=== PATIENT | female | born 1945 | race Caucasian/White ===

== ENCOUNTER → 2020-05-29 | Outpatient (REF) | payer MEDICARE, OTHER ==
[2020-05-29 11:52] LABS: HEMATOCRIT 41.8 % (36.0-47.0); HEMOGLOBIN 13.5 g/dl (12.0-15.5); MEAN CORPUSCULAR HEMOGLOBIN 29.9 pg (27.0-33.0); MEAN CORPUSCULAR HGB CONC 32.3 g/dl (32.0-36.5); MEAN CORPUSCULAR VOLUME 92.5 fl (80.0-96.0); PLATELET COUNT, AUTOMATED 156 10^3/uL (150-450); RED BLOOD COUNT 4.52 10^6/uL (4.00-5.40)
[2020-05-29 11:58] LABS: WHITE BLOOD COUNT 13.7 10^3/uL (4.0-10.0)
[2020-05-29 12:21] LABS: ALBUMIN 3.9 GM/DL (3.2-5.2); ALT/SGPT 11 U/L (12-78); BILIRUBIN,TOTAL 0.5 MG/DL (0.2-1.0); BLOOD UREA NITROGEN 24 MG/DL (7-18); CALCIUM LEVEL 9.3 MG/DL (8.8-10.2); CARBON DIOXIDE LEVEL 30 MEQ/L (21-32); CHLORIDE LEVEL 106 MEQ/L (98-107); CHOLESTEROL LEVEL 203 MG/DL (<200); CHOLESTEROL RISK RATIO 3.075 (<5); CREATININE FOR GFR 0.87 MG/DL (0.55-1.30); FREE T4 1.03 NG/DL (0.76-1.46); GLOMERULAR FILTRATION RATE > 60.0 (>39); GLUCOSE, FASTING 101 MG/DL (70-100); HDL CHOLESTEROL 66 MG/DL (>40); LDL CHOLESTEROL 116 MG/DL (<100); NON-HDL-C 137 MG/DL; POTASSIUM SERUM 3.7 MEQ/L (3.5-5.1); SODIUM LEVEL 140 MEQ/L (136-145); TOTAL PROTEIN 6.3 GM/DL (6.4-8.2); TRIGLYCERIDES LEVEL 106 MG/DL (<150)
[2020-05-29 13:50] LABS: LYMPHOCYTES 69 % (16-44); MONOCYTES 3 % (0-5); NEUTROPHILS 28 % (28-66)
[2020-05-29 13:51] LABS: PLATELET ESTIMATE NORMAL (NORMAL)
== END ==
LOC: M SFHCCLAY 09:07
PROVIDERS: ATTEND Nurse Practitioner Family
DX: E78.49 Other hyperlipidemia (principal); I10 Essential (primary) hypertension; I25.10 Atherosclerotic heart disease of native coronary artery without angina pectoris; F41.8 Other specified anxiety disorders; Z13.1 Encounter for screening for diabetes mellitus; Z79.899 Other long term (current) drug therapy
CPT/HCPCS: 80053; 80061; 83036; 84439; 84443; 85025; G0463

== ENCOUNTER → 2020-08-21 | Outpatient (CLI) | payer MEDICARE, OTHER ==
--- NOTE | 2020-08-21 13:13 | REP ---
INDICATION: R16.0 HEPATOMEGALY. COMPARISON: None FINDINGS: Multiple ultrasonographic images of the liver show the hepatic parenchymal echo texture to appear unremarkable. There are no focal masses. There is no ultrasonographic evidence of gross hepatomegaly. There is no intrahepatic ductal dilatation. The common bile duct is somewhat dilated measuring 7.3 mm. Multiple ultrasonographic images of the gallbladder show no focal or diffuse gallbladder wall thickening. There are no echogenic foci within the gallbladder lumen, which casts acoustic shadows. There is no pericholecystic edema. Images of the pancreatic region show pancreatic ductal dilatation measuring 5 mm. Diffuse increased echoes are also seen throughout the pancreas without evidence of a discrete mass. The imaged portion of the right kidney is unremarkable. IMPRESSION: 1. Dilatation of the CBD. 2. Pancreatic duct dilatation. 3. Consider follow-up with pancreatic MRI and MRCP. Accredited by the [employer] in General Ultrasound. <Electronically signed by Jama Mckinnon > 08/21/20 [id number]
== END ==
LOC: M WHC 09:13
PROVIDERS: ATTEND Nurse Practitioner Family
DX: R16.0 Hepatomegaly, not elsewhere classified (principal)

== ENCOUNTER → 2020-10-06 | Outpatient (CLI) | payer MEDICARE, OTHER ==
--- NOTE | 2020-10-06 10:16 | REP ---
INDICATION: MRCP COMMON BILE DUCT DIALATION. COMPARISON: Comparison right upper quadrant sonography 21 August 2020 showed dilation of the common bile duct and pancreatic duct, 7.3 and 5 mm respectively.. TECHNIQUE: 2D MRCP acquisition is acquired and maximum intensity projection images are generated and viewed in rotational format. Coronal and axial T2 weighted scans are included. FINDINGS: There are 3 cyst tiny filling defects near the neck of the gallbladder is consistent with small gallbladder calculi. Gallbladder wall is not thickened. No pericholecystic fluid is seen. No focal liver lesion is seen. The spleen is unremarkable No renal abnormality is seen. MRCP images confirm the presence of mild dilation of the common bile duct, 7 mm in greatest diameter. There is moderate distension of the pancreatic duct, 6 mm in diameter. There is no evidence of pancreatic mass. No filling defect is seen in the common bile duct or main pancreatic duct. There is no evidence of intrahepatic ductal dilation. There is a duodenal diverticulum are which appears to arise from the horizontal, 3rd portion of the duodenum below the pancreatic head. No other finding. IMPRESSION: Mild common bile duct dilation is confirmed. Moderate dilation of the main pancreatic duct is seen. No stricture or mass is observed. There is no MRCP evidence of choledocholithiasis. There are small stones believed to be in the lumen of the gallbladder. <Electronically signed by Rad Katz > 10/06/20 [id number]
== END ==
LOC: M RAD 07:34
PROVIDERS: ATTEND Nurse Practitioner Family
DX: K83.8 Other specified diseases of biliary tract (principal)

== ENCOUNTER → 2020-11-14 | Outpatient (CLI) | payer MEDICARE, OTHER ==
[~2020-11-14] MED LIST: ALPR0.5T3; COMB0.2S; EZET10TA21; HYDR10TAB; LOSA100T5; NITR100C2; PREDOPD; ROSU10TA6; SERTRALINE
== END ==
LOC: M LABSMTC 11:51
PROVIDERS: ATTEND Anesthesiology
DX: Z01.818 Encounter for other preprocedural examination (principal); Z20.828 Contact with and (suspected) exposure to other viral communicable diseases

== ENCOUNTER → 2020-12-30 | Outpatient (REF) | payer MEDICARE, OTHER ==
[2020-12-30 16:32] LABS: HEMATOCRIT 41.6 % (36.0-47.0); HEMOGLOBIN 13.4 g/dl (12.0-15.5); MEAN CORPUSCULAR HEMOGLOBIN 29.6 pg (27.0-33.0); MEAN CORPUSCULAR HGB CONC 32.2 g/dl (32.0-36.5); PLATELET COUNT, AUTOMATED 163 10^3/uL (150-450); RED BLOOD COUNT 4.52 10^6/uL (4.00-5.40)
[2020-12-30 16:39] LABS: WHITE BLOOD COUNT 14.4 10^3/uL (4.0-10.0)
[2020-12-30 16:58] LABS: RHEUMATOID FACTOR QUANT < 10.0 IU/ML (<15.0); TOTAL PROTEIN 6.2 GM/DL (6.4-8.2)
[2020-12-30 17:11] LABS: ATYPICAL LYMPH 4 % (0-5); BASOPHILS 3 % (0-1); EOSINOPHILS 1 % (0-3); LYMPHOCYTES 59 % (16-44); MONOCYTES 1 % (0-5); NEUTROPHILS 31 % (28-66)
[2020-12-30 17:12] LABS: PLATELET ESTIMATE NORMAL (NORMAL)
[2020-12-30 17:27] LABS: ERYTHROCYTE SEDIMENTATION RATE 9 mm/hr (0-30)
[2020-12-30 17:28] LABS: VITAMIN B12 LEVEL 291 PG/ML
[2020-12-30 17:29] LABS: FOLATE 16.7 NG/ML
[2021-01-01 11:49] LABS: ALBUMIN 4.11 GM/DL (3.29-5.55); ALBUMIN % 66.3 % (55.8-66.1); ALPHA-1-GLOBULIN % 4.4 % (2.9-4.9); ALPHA-1-GLOBULINS 0.27 GM/DL (0.17-0.41); ALPHA-2-GLOBULINS 0.71 GM/DL (0.42-0.99); ALPHA-2-GLOBULINS % 11.4 % (7.1-11.8); BETA-1-GLOBULINS 0.37 GM/DL (0.28-0.60); BETA-2-GLOBULINS 0.24 GM/DL (0.19-0.55); BETA-2-GLOBULINS % 3.9 % (3.2-6.5)
== END ==
LOC: M LABDRAWC 15:47
PROVIDERS: ATTEND Psychiatry & Neurology Neurology
DX: R41.89 Other symptoms and signs involving cognitive functions and awareness (principal); I10 Essential (primary) hypertension; E78.49 Other hyperlipidemia; Z11.59 Encounter for screening for other viral diseases; I25.10 Atherosclerotic heart disease of native coronary artery without angina pectoris; F41.8 Other specified anxiety disorders; Z13.1 Encounter for screening for diabetes mellitus; Z79.899 Other long term (current) drug therapy

== ENCOUNTER → 2020-12-30 | Outpatient (REF) | payer MEDICARE, OTHER ==
[2020-12-30 17:02] LABS: ALBUMIN 3.7 GM/DL (3.2-5.2); ALT/SGPT 12 U/L (12-78); BILIRUBIN,TOTAL 0.5 MG/DL (0.2-1.0); BLOOD UREA NITROGEN 19 MG/DL (7-18); CALCIUM LEVEL 9.1 MG/DL (8.8-10.2); CARBON DIOXIDE LEVEL 30 MEQ/L (21-32); CHLORIDE LEVEL 107 MEQ/L (98-107); CHOLESTEROL LEVEL 172 MG/DL (<200); CHOLESTEROL RISK RATIO 2.687 (<5); FREE T4 0.92 NG/DL (0.76-1.46); GLOMERULAR FILTRATION RATE > 60.0 (>39); GLUCOSE, FASTING 100 MG/DL (70-100); HDL CHOLESTEROL 64 MG/DL (>40); LDL CHOLESTEROL 85 MG/DL (<100); NON-HDL-C 108 MG/DL; SODIUM LEVEL 143 MEQ/L (136-145); TOTAL PROTEIN 6.2 GM/DL (6.4-8.2); TRIGLYCERIDES LEVEL 117 MG/DL (<150)
[2020-12-30 17:12] LABS: HEMOGLOBIN A1c 5.6 %
[2020-12-30 18:07] LABS: HEPATITIS C VIRUS ABY INDEX < 0.0 INDEX (<0.8)
== END ==
LOC: M SFHCCLAY 09:52
PROVIDERS: ATTEND Nurse Practitioner Family
DX: I10 Essential (primary) hypertension (principal); E78.49 Other hyperlipidemia; Z11.59 Encounter for screening for other viral diseases; I25.10 Atherosclerotic heart disease of native coronary artery without angina pectoris; F41.8 Other specified anxiety disorders; Z13.1 Encounter for screening for diabetes mellitus; Z79.899 Other long term (current) drug therapy

== ENCOUNTER → 2021-02-04 | Outpatient (CLI) | payer MEDICARE, OTHER ==
[~2021-02-04] MED LIST changes: +ADVI200T PO; +GLUC1TAB58 PO; -HYDR10TAB; +HYDR10TAB PO; -LOSA100T5; +LOSA100T5 PO; -ROSU10TA6; +ROSU10TA6 PO; +ZOLO100T PO; +[UNRECOGNIZED DRUG - OTHER] PO
--- NOTE | 2021-02-04 09:47 | REP ---
INDICATION: M25.562, PAIN IN LEFT KNEE COMPARISON: None. TECHNIQUE: AP, lateral, bilateral oblique and sunrise views. FINDINGS: The osseous structures and joint spaces are intact and normal/age-appropriate. There is no evidence for acute fracture or dislocation. Minimal increased sclerosis along the tibial plateau and posterior patellar margin with subtle medial tibiofemoral joint space narrowing. No joint effusion is appreciated. Surrounding soft tissues are unremarkable. No subcutaneous emphysema or radiodense foreign body. IMPRESSION: Very minimal age-related changes. <Electronically signed by Raymond Pinto > 02/04/21 [id number]
== END ==
LOC: M CLY 09:09
PROVIDERS: ATTEND Nurse Practitioner Family
DX: M25.562 Pain in left knee (principal)
CPT/HCPCS: 73564; G0463

== ENCOUNTER → 2021-02-17 | Outpatient (CLI) | payer MEDICARE, OTHER ==
[2021-02-17 18:18] LABS: BASO # 0.1 10^3/uL (0.0-0.2); BASO % 0.5 % (0.0-1.0); EOS # 0.1 10^3/uL (0.0-0.5); EOS % 0.7 % (0.0-3.0); HEMATOCRIT 41.7 % (36.0-47.0); HEMOGLOBIN 13.5 g/dl (12.0-15.5); LYMPH # 9.9 10^3/uL (1.5-5.0); LYMPH % 65.6 % (24.0-44.0); MEAN CORPUSCULAR HGB CONC 32.4 g/dl (32.0-36.5); MEAN CORPUSCULAR VOLUME 92.7 fl (80.0-96.0); MONO # 0.6 10^3/uL (0.0-0.8); MONO % 4.2 % (2.0-8.0); NEUTROPHILS # 4.3 10^3/uL (1.5-8.5); NEUTROPHILS % 28.7 % (36.0-66.0); PLATELET COUNT, AUTOMATED 151 10^3/uL (150-450)
[2021-02-17 18:31] LABS: WHITE BLOOD COUNT 15.1 10^3/uL (4.0-10.0)
[2021-02-18 10:32] LABS: ALT/SGPT 16 U/L (12-78); BILIRUBIN,TOTAL 0.4 MG/DL (0.2-1.0); BLOOD UREA NITROGEN 23 MG/DL (7-18); CARBON DIOXIDE LEVEL 29 MEQ/L (21-32); CHLORIDE LEVEL 108 MEQ/L (98-107); CREATININE FOR GFR 0.85 MG/DL (0.55-1.30); GLOMERULAR FILTRATION RATE > 60.0 (>39); GLUCOSE, FASTING 92 MG/DL (70-100); LDH LACTATE DEHYDROGENASE 165 U/L (84-246); POTASSIUM SERUM 4.1 MEQ/L (3.5-5.1); SODIUM LEVEL 142 MEQ/L (136-145); TOTAL PROTEIN 6.3 GM/DL (6.4-8.2)
== END ==
LOC: M LAB 17:02
PROVIDERS: ATTEND Internal Medicine Medical Oncology
DX: C91.90 Lymphoid leukemia, unspecified not having achieved remission (principal)

== ENCOUNTER → 2021-04-03 | Outpatient (REF) | payer MEDICARE, OTHER | LOC: M LABDRAWC 11:19 | PROVIDERS: ATTEND Psychiatry & Neurology Neurology | DX: R77.9 Abnormality of plasma protein, unspecified (principal) ==

== ENCOUNTER → 2021-06-24 | Outpatient (REF) | payer MEDICARE, OTHER ==
[~2021-06-24] MED LIST changes: +[UNRECOGNIZED DRUG - OTHER] PO
== END ==
LOC: M SFHCCLAY 10:01
PROVIDERS: ATTEND Physician Assistant
DX: R05.9 Cough, unspecified (principal)
CPT/HCPCS: 87426; G0463; U0003

== ENCOUNTER → 2021-09-24 | Outpatient (REF) | payer MEDICARE, OTHER ==
[2021-09-24 16:25] LABS: TOTAL PROTEIN 6.6 GM/DL (6.4-8.2)
[2021-09-24 17:08] LABS: VITAMIN B12 LEVEL 538 PG/ML
[2021-09-24 17:17] LABS: FOLATE 18.4 NG/ML
[2021-09-28 10:47] LABS: ALBUMIN 4.34 GM/DL (3.29-5.55); ALBUMIN % 65.7 % (55.8-66.1); ALPHA-1-GLOBULIN % 4.4 % (2.9-4.9); ALPHA-1-GLOBULINS 0.29 GM/DL (0.17-0.41); ALPHA-2-GLOBULINS % 12.1 % (7.1-11.8); BETA-1-GLOBULINS 0.42 GM/DL (0.28-0.60); BETA-1-GLOBULINS % 6.4 % (4.7-7.2); BETA-2-GLOBULINS 0.26 GM/DL (0.19-0.55)
[2021-09-28 10:48] LABS: BETA-2-GLOBULINS % 3.9 % (3.2-6.5); GAMMA GLOBULIN % 7.5 % (11.1-18.8)
[2021-10-12 18:07] LABS: CERULOPLASMIN 30.3 mg/dL (19.0-39.0); COPPER PLASMA 121 ug/dL (80-158); LEAD BLOOD ADULT <1 ug/dL (0-4); MERCURY LEVEL 1.1 ug/L (0.0-14.9); VITAMIN B1 LEVEL WHOLE BLOOD 148.5 nmol/L (66.5-200.0); VITAMIN B6,PYRIDOXAL PHOSPHATE 7.6 ug/L (2.0-32.8)
== END ==
LOC: M LABDRAWC 15:36
PROVIDERS: ATTEND Psychiatry & Neurology Neurology
DX: G62.9 Polyneuropathy, unspecified (principal)

== ENCOUNTER → 2021-11-23 | Outpatient (REF) | payer MEDICARE, OTHER ==
[2021-11-23 16:17] LABS: BASO # 0.1 10^3/uL (0.0-0.2); BASO % 0.5 % (0.0-1.0); EOS # 0.1 10^3/uL (0.0-0.5); EOS % 0.8 % (0.0-3.0); HEMOGLOBIN 14.2 g/dl (12.0-15.5); LYMPH # 9.5 10^3/uL (1.5-5.0); MEAN CORPUSCULAR HEMOGLOBIN 29.5 pg (27.0-33.0); MEAN CORPUSCULAR HGB CONC 32.3 g/dl (32.0-36.5); MEAN CORPUSCULAR VOLUME 91.5 fl (80.0-96.0); MONO # 0.7 10^3/uL (0.0-0.8); MONO % 4.7 % (2.0-8.0); NEUTROPHILS # 5.1 10^3/uL (1.5-8.5); NEUTROPHILS % 32.7 % (36.0-66.0); PLATELET COUNT, AUTOMATED 186 10^3/uL (150-450); RED BLOOD COUNT 4.81 10^6/uL (4.00-5.40); WHITE BLOOD COUNT 15.6 10^3/uL (4.0-10.0)
[2021-11-23 16:29] LABS: ALBUMIN 4.3 GM/DL (3.2-5.2); ALT/SGPT 10 U/L (12-78); BILIRUBIN,TOTAL 0.5 MG/DL (0.2-1.0); BLOOD UREA NITROGEN 22 MG/DL (7-18); CALCIUM LEVEL 9.7 MG/DL (8.8-10.2); CARBON DIOXIDE LEVEL 28 MEQ/L (21-32); CHLORIDE LEVEL 106 MEQ/L (98-107); CHOLESTEROL LEVEL 237 MG/DL (<200); CHOLESTEROL RISK RATIO 3.885 (<5); CREATININE FOR GFR 0.79 MG/DL (0.55-1.30); FREE T4 2.96 NG/DL (0.76-1.46); GLOMERULAR FILTRATION RATE > 60.0 (>39); GLUCOSE, FASTING 97 MG/DL (70-100); HDL CHOLESTEROL 61 MG/DL (>40); LDL CHOLESTEROL 141 MG/DL (<100); MAGNESIUM LEVEL 2.1 MG/DL (1.8-2.4); NON-HDL-C 176 MG/DL; POTASSIUM SERUM 4.1 MEQ/L (3.5-5.1); SODIUM LEVEL 142 MEQ/L (136-145); THYROID STIMULATING HORMONE 0.935 uIU/ML (0.358-3.740); TOTAL PROTEIN 6.7 GM/DL (6.4-8.2); TRIGLYCERIDES LEVEL 177 MG/DL (<150)
[2021-11-23 16:59] LABS: HEMOGLOBIN A1c 5.7 %
[2021-11-26 13:24] LABS: FREE T3 2.9 PG/ML (2.2-4.0); THYROGLOBULIN ANTIBODY < 15.0 U/ML (<60.0); THYROID PEROXIDASE ANTIBODY < 28.0 U/ML (<60.0); TOTAL T3 102.6 NG/DL (60.0-181.0)
== END ==
LOC: M SFHCCLAY 11:42
PROVIDERS: ATTEND Nurse Practitioner Family
DX: I10 Essential (primary) hypertension (principal); E78.49 Other hyperlipidemia; K52.9 Noninfective gastroenteritis and colitis, unspecified; I25.10 Atherosclerotic heart disease of native coronary artery without angina pectoris; F41.8 Other specified anxiety disorders; C91.10 Chronic lymphocytic leukemia of B-cell type not having achieved remission; R73.03 Prediabetes; R41.3 Other amnesia; R29.818 Other symptoms and signs involving the nervous system; Z79.899 Other long term (current) drug therapy

== ENCOUNTER → 2021-12-07 | Outpatient (CLI) | payer MEDICARE, OTHER | LOC: M WHC 09:58 | PROVIDERS: ATTEND Nurse Practitioner Family | DX: E04.1 Nontoxic single thyroid nodule (principal); R79.89 Other specified abnormal findings of blood chemistry ==

== ENCOUNTER → 2021-12-14 | Outpatient (CLI) | payer MEDICARE, OTHER | LOC: M RAD 12:17 | PROVIDERS: ATTEND Nurse Practitioner Family | DX: M79.89 Other specified soft tissue disorders (principal) ==

== ENCOUNTER → 2022-01-05 | Outpatient (REF) | payer MEDICARE, OTHER ==
[2022-01-05 17:40] LABS: FREE T4 2.8 NG/DL (0.76-1.46); THYROID STIMULATING HORMONE 1.16 uIU/ML (0.358-3.740)
== END ==
LOC: M SFHCCLAY 11:30
PROVIDERS: ATTEND Nurse Practitioner Family
DX: R79.89 Other specified abnormal findings of blood chemistry (principal); N39.0 Urinary tract infection, site not specified; Z79.899 Other long term (current) drug therapy

== ENCOUNTER → 2022-02-08 | Outpatient (REF) | payer MEDICARE, OTHER ==
[2022-02-08 17:41] LABS: APPEARANCE, URINE CLEAR (CLEAR); BACTERIA, URINE AUTO NEGATIVE (NEGATIVE); BILIRUBIN, URINE AUTO NEGATIVE (NEGATIVE); BLOOD, URINE BLOOD NEGATIVE (NEGATIVE); COLOR, URINE YELLOW (YELLOW); GLUCOSE, URINE (UA) AUTO NEGATIVE (NEGATIVE); KETONE, URINE AUTO NEGATIVE (NEGATIVE); LEUKOCYTE ESTERASE, URINE AUTO 2+ (NEGATIVE); NITRITE, URINE AUTO NEGATIVE (NEGATIVE); PROTEIN, URINE AUTO NEGATIVE (NEGATIVE); RBC, URINE AUTO 2 /HPF (0-3); SPECIFIC GRAVITY URINE AUTO 1.014 (1.002-1.035); SQUAMOUS EPITHELIAL CELL UR AU 0 /HPF (0-6); TRANSITIONAL EPITHELIAL AUTO <1 /HPF; UROBILINOGEN, URINE AUTO 0.2 mg/dL (0.0-2.0); WBC, URINE AUTO 3 /HPF (0-3)
== END ==
LOC: M SMT 16:43
PROVIDERS: ATTEND Urology
DX: N39.0 Urinary tract infection, site not specified (principal)

== ENCOUNTER → 2022-02-23 | Outpatient (REF) | payer MEDICARE, OTHER | LOC: M LABDRAWC 11:00 | PROVIDERS: ATTEND Internal Medicine Endocrinology, Diabetes & Metabolism | DX: R94.6 Abnormal results of thyroid function studies (principal) ==

== ENCOUNTER → 2022-07-01 | Outpatient (REF) | payer MEDICARE, OTHER ==
[2022-07-01 19:27] LABS: ALBUMIN 4.2 G/DL (3.2-5.2); BLOOD UREA NITROGEN 25 MG/DL (9-23); CALCIUM LEVEL 9.3 MG/DL (8.3-10.6); CARBON DIOXIDE LEVEL 28 MMOL/L (20-31); CHLORIDE LEVEL 105 MMOL/L (98-107); CREATININE FOR GFR 0.89 MG/DL (0.55-1.30); GLOMERULAR FILTRATION RATE > 60.0 (>39); GLUCOSE, FASTING 118 MG/DL (74-106); PHOSPHORUS LEVEL 4.2 MG/DL (2.4-5.1); POTASSIUM SERUM 4.6 MMOL/L (3.5-5.1); SODIUM LEVEL 142 MMOL/L (136-145)
== END ==
LOC: M LABDRAWC 17:06
PROVIDERS: ATTEND Internal Medicine Cardiovascular Disease
DX: I10 Essential (primary) hypertension (principal); R60.0 Localized edema; R06.02 Shortness of breath

== ENCOUNTER → 2022-07-28 | Outpatient (REF) | payer MEDICARE, OTHER ==
[2022-07-28 21:38] LABS: APPEARANCE, URINE MANUAL CLEAR (CLEAR); COLOR, URINE MANUAL YELLOW (YELLOW)
[2022-07-28 21:39] LABS: BILIRUBIN, URINE MANUAL NEGATIVE (NEGATIVE); BLOOD URINE MANUAL NEGATIVE (NEGATIVE); GLUCOSE, URINE (UA) MANUAL NEGATIVE (NEGATIVE); KETONE, URINE MANUAL NEGATIVE (NEGATIVE); LEUKOCYTE ESTERASE, URINE MAN POSITIVE (NEGATIVE); NITRITE, URINE MANUAL NEGATIVE (NEGATIVE); PROTEIN, URINE MANUAL NEGATIVE (NEGATIVE); SPECIFIC GRAVITY,URINE MANUAL 1.005 (1.002-1.035); UROBILINOGEN, URINE MANUAL NORMAL (NORMAL)
[2022-07-28 22:05] LABS: RBC, URINE 0-1 /hpf (0-3); SQUAMOUS EPITHELIAL CELL URINE NONE SEEN /hpf (SMALL AMT)
[2022-07-28 22:06] LABS: BACTERIA, URINE NONE SEEN; HYALINE CAST, URINE NONE SEEN /lpf (0-1)
== END ==
LOC: M SMT 17:24
PROVIDERS: ATTEND Physician Assistant
DX: N39.0 Urinary tract infection, site not specified (principal)

== ENCOUNTER → 2022-08-24 | Outpatient (CLI) | payer MEDICARE, OTHER ==
[~2022-08-24] MED LIST changes: +BUPR-69 PO; +BUSP5TA; +CHLO125TA; +LORA-674; +LOSA100T45; +SPIR-10
== END ==
LOC: M CLY 11:37
PROVIDERS: ATTEND Nurse Practitioner Family
DX: R05.8 Other specified cough (principal); I51.7 Cardiomegaly; I70.0 Atherosclerosis of aorta; M48.14 Ankylosing hyperostosis [Forestier], thoracic region

== ENCOUNTER → 2022-08-27 | Outpatient (REF) | payer MEDICARE, OTHER ==
[~2022-08-27] MED LIST changes: -BUPR-69 PO; -BUSP5TA; -CHLO125TA; -LORA-674; -LOSA100T45; -SPIR-10
== END ==
LOC: M SFHCCLAY 11:20
PROVIDERS: ATTEND Nurse Practitioner Family
DX: R05.8 Other specified cough (principal)

== ENCOUNTER 2022-09-15 13:31 | Emergency (ER) | payer MEDICARE, OTHER ==
[~2022-09-15] VITALS: Ht 160 cm; Wt 81.5 kg
[2022-09-15] MEDS ORDERED: LOSA100T45 (13:45)
[2022-09-15] MEDS ORDERED: BUPR-69 PO (13:45)
[2022-09-15] MEDS ORDERED: CHLO125TA (13:45)
[2022-09-15] MEDS ORDERED: BUSP5TA (13:45)
[2022-09-15] MEDS ORDERED: SPIR-10 (13:45)
[2022-09-15 15:49] VITALS: BP 129/61
[2022-09-15 16:52] LABS: BASO # 0.1 10^3/uL (0.0-0.2); BASO % 0.5 % (0.0-1.0); EOS # 0.6 10^3/uL (0.0-0.5); EOS % 2.7 % (0.0-3.0); HEMATOCRIT 42.2 % (36.0-47.0); HEMOGLOBIN 13.6 g/dl (12.0-15.5); LYMPH % 60.9 % (24.0-44.0); MEAN CORPUSCULAR HEMOGLOBIN 28.8 pg (27.0-33.0); MEAN CORPUSCULAR HGB CONC 32.2 g/dl (32.0-36.5); MEAN CORPUSCULAR VOLUME 89.4 fl (80.0-96.0); MONO # 0.9 10^3/uL (0.0-0.8); MONO % 4.2 % (2.0-8.0); NEUTROPHILS # 6.7 10^3/uL (1.5-8.5); NEUTROPHILS % 31.3 % (36.0-66.0); PLATELET COUNT, AUTOMATED 230 10^3/uL (150-450); RED BLOOD COUNT 4.72 10^6/uL (4.00-5.40); WHITE BLOOD COUNT 21.4 10^3/uL (4.0-10.0)
[2022-09-15 17:05] LABS: ERYTHROCYTE SEDIMENTATION RATE 53 mm/hr (0-30)
[2022-09-15 17:15] LABS: ALBUMIN 3.9 G/DL (3.2-5.2); ALKALINE PHOSPHATASE 87 U/L (46-116); BLOOD UREA NITROGEN 26 MG/DL (9-23); CALCIUM LEVEL 9.7 MG/DL (8.3-10.6); CARBON DIOXIDE LEVEL 26 MMOL/L (20-31); CHLORIDE LEVEL 101 MMOL/L (98-107); GLUCOSE, FASTING 103 MG/DL (74-106); POTASSIUM SERUM 4.2 MMOL/L (3.5-5.1); SODIUM LEVEL 137 MMOL/L (136-145)
[2022-09-15 17:16] LABS: LDH LACTATE DEHYDROGENASE 167 U/L (120-246)
[2022-09-15] MEDS ORDERED: ISOVUE-370 76% 100ML VIAL As Ordered ONE (18:15)
[2022-09-15 18:23] LABS: ALT/SGPT < 9 U/L (7.0-40); AST/SGOT 21 U/L (<34); BILIRUBIN,DIRECT 0.1 MG/DL (<0.4); BILIRUBIN,TOTAL 0.5 MG/DL (0.3-1.2); CREATININE FOR GFR 1.14 MG/DL (0.55-1.30); GLOMERULAR FILTRATION RATE 48.9 (>39)
== END 2022-09-15 20:10 | disposition home or self-care (01) ==
LOC: M ED 13:31
DX: R05.9 Cough, unspecified (principal); D72.829 Elevated white blood cell count, unspecified; I10 Essential (primary) hypertension; G47.33 Obstructive sleep apnea (adult) (pediatric); Z88.5 Allergy status to narcotic agent; Z91.040 Latex allergy status; Z79.899 Other long term (current) drug therapy
CPT/HCPCS: 70491; 71046; 71275; 80047; 80048; 80076; 83605; 83615; 85025; 85652; 86140; 87040; 87486; 87581; 87633; 87798; 99284; Q9967

== ENCOUNTER → 2022-12-23 | Outpatient (REF) | payer MEDICARE, OTHER ==
[~2022-12-23] MED LIST changes: +BUPR-69 PO; +BUSP5TA; +CHLO125TA; +LORA-674; +LOSA100T46; +SPIR-10
== END ==
LOC: M SFHCDERM 17:24
PROVIDERS: ATTEND Nurse Practitioner Family
DX: D04.39 Carcinoma in situ of skin of other parts of face (principal); L57.8 Other skin changes due to chronic exposure to nonionizing radiation

== ENCOUNTER → 2023-03-29 | Outpatient (REF) | payer MEDICARE ==
[2023-03-29 19:19] LABS: BASO # 0.1 10^3/uL (0.0-0.2); BASO % 0.4 % (0.0-1.0); EOS # 0.2 10^3/uL (0.0-0.5); HEMATOCRIT 43.4 % (36.0-47.0); HEMOGLOBIN 13.6 g/dl (12.0-15.5); LYMPH # 9.2 10^3/uL (1.5-5.0); LYMPH % 61.7 % (24.0-44.0); MEAN CORPUSCULAR HEMOGLOBIN 28.8 pg (27.0-33.0); MEAN CORPUSCULAR HGB CONC 31.3 g/dl (32.0-36.5); MEAN CORPUSCULAR VOLUME 91.8 fl (80.0-96.0); MONO # 0.5 10^3/uL (0.0-0.8); MONO % 3.6 % (2.0-8.0); NEUTROPHILS # 4.9 10^3/uL (1.5-8.5); PLATELET COUNT, AUTOMATED 174 10^3/uL (150-450); RED BLOOD COUNT 4.73 10^6/uL (4.00-5.40); WHITE BLOOD COUNT 14.9 10^3/uL (4.0-10.0)
[2023-03-29 19:45] LABS: IMMUNOGLOBULIN A 86.2 MG/DL (40-350); IMMUNOGLOBULIN M 53.7 MG/DL (50-300)
[2023-03-29 20:13] LABS: IMMUNOGLOBULIN E 2.6 IU/ML (0-378)
== END ==
LOC: M LABDRAWC 16:32
PROVIDERS: ATTEND Internal Medicine Critical Care Medicine
DX: D80.3 Selective deficiency of immunoglobulin G [IgG] subclasses (principal); J45.30 Mild persistent asthma, uncomplicated

== ENCOUNTER → 2023-03-29 | Outpatient (REF) | payer MEDICARE ==
[2023-03-29 19:32] LABS: HEMOGLOBIN A1c 5.8 % (4.0-6.0)
[2023-03-29 19:48] LABS: ALBUMIN 4.2 G/DL (3.2-5.2); ALKALINE PHOSPHATASE 70 U/L (46-116); ALT/SGPT < 9 U/L (7.0-40); AST/SGOT 12 U/L (<34); BILIRUBIN,TOTAL 0.5 MG/DL (0.3-1.2); BLOOD UREA NITROGEN 30 MG/DL (9-23); CALCIUM LEVEL 9.9 MG/DL (8.3-10.6); CARBON DIOXIDE LEVEL 26 MMOL/L (20-31); CHLORIDE LEVEL 107 MMOL/L (98-107); CHOLESTEROL LEVEL 222 MG/DL (<200); CHOLESTEROL RISK RATIO 3.32 (<5); CREATININE FOR GFR 0.98 MG/DL (0.55-1.30); GLOMERULAR FILTRATION RATE 58.1 (>32); GLUCOSE, FASTING 104 MG/DL (74-106); HDL CHOLESTEROL 66.8 MG/DL (>40); LDL CHOLESTEROL 117.8 MG/DL (<100); MAGNESIUM LEVEL 1.8 MG/DL (1.8-2.4); NON-HDL-C 155.2 MG/DL; POTASSIUM SERUM 5.1 MMOL/L (3.5-5.1); SODIUM LEVEL 141 MMOL/L (136-145); TOTAL PROTEIN 6.6 G/DL (5.7-8.2); TRIGLYCERIDES LEVEL 187 MG/DL (<150)
[2023-03-29 19:49] LABS: FREE T4 1.05 NG/DL (0.89-1.76)
[2023-03-29 19:50] LABS: TOTAL 25(OH) VITAMIN D 23.4 NG/ML (20.0-100.0)
== END ==
LOC: M SFHCCLAY 09:44
PROVIDERS: ATTEND Nurse Practitioner Family
DX: I10 Essential (primary) hypertension (principal); I25.10 Atherosclerotic heart disease of native coronary artery without angina pectoris; E78.49 Other hyperlipidemia; E55.9 Vitamin D deficiency, unspecified; R79.89 Other specified abnormal findings of blood chemistry; R29.818 Other symptoms and signs involving the nervous system; Z79.899 Other long term (current) drug therapy

== ENCOUNTER → 2023-04-07 | Outpatient (CLI) | payer MEDICARE, OTHER ==
[~2023-04-07] MED LIST changes: +LORA-1041; -LORA-674
== END ==
LOC: M WHC 08:59
PROVIDERS: ATTEND Nurse Practitioner Family
DX: R10.11 Right upper quadrant pain (principal)

== ENCOUNTER → 2023-05-06 | Outpatient (REF) | payer MEDICARE, OTHER | LOC: M SFHCDERM 11:13 | PROVIDERS: ATTEND Nurse Practitioner Family | DX: C44.529 Squamous cell carcinoma of skin of other part of trunk (principal) ==

== ENCOUNTER → 2023-07-12 | Outpatient (CLI) | payer MEDICARE, OTHER | LOC: M PLAIMG 10:05 | PROVIDERS: ATTEND Internal Medicine Critical Care Medicine | DX: J15.8 Pneumonia due to other specified bacteria (principal); I70.0 Atherosclerosis of aorta; I31.39 Other pericardial effusion (noninflammatory); K80.20 Calculus of gallbladder without cholecystitis without obstruction ==

== ENCOUNTER → 2023-09-09 | Outpatient (REF) | payer MEDICARE ==
[~2023-09-09] MED LIST changes: +HYDR-161 PO; -HYDR10TAB PO
== END ==
LOC: M SFHCDERM 08:39
PROVIDERS: ATTEND Physician Assistant
DX: D04.62 Carcinoma in situ of skin of left upper limb, including shoulder (principal); C44.629 Squamous cell carcinoma of skin of left upper limb, including shoulder; L85.9 Epidermal thickening, unspecified

== ENCOUNTER → 2023-11-09 | Outpatient (REF) | payer MEDICARE ==
[2023-11-09 19:20] LABS: APPEARANCE, URINE CLEAR (CLEAR); BACTERIA, URINE AUTO 3+ (NEGATIVE); BILIRUBIN, URINE AUTO NEGATIVE (NEGATIVE); BLOOD, URINE BLOOD NEGATIVE (NEGATIVE); COLOR, URINE AMBER (YELLOW); GLUCOSE, URINE (UA) AUTO NEGATIVE (NEGATIVE); KETONE, URINE AUTO NEGATIVE (NEGATIVE); LEUKOCYTE ESTERASE, URINE AUTO 3+ (NEGATIVE); MUCUS, URINE SMALL (NEGATIVE); NITRITE, URINE AUTO NEGATIVE (NEGATIVE); PROTEIN, URINE AUTO NEGATIVE (NEGATIVE); RBC, URINE AUTO 0 /HPF (0-3); SPECIFIC GRAVITY URINE AUTO 1.004 (1.002-1.035); SQUAMOUS EPITHELIAL CELL UR AU 0 /HPF (0-6); UROBILINOGEN, URINE AUTO 0.2 mg/dL (0.0-2.0); WBC, URINE AUTO 26 /HPF (0-3)
== END ==
LOC: M LABDRAWC 16:38
PROVIDERS: ATTEND Nurse Practitioner Family
DX: R35.0 Frequency of micturition (principal)

== ENCOUNTER → 2024-01-09 | Outpatient (REF) | payer MEDICARE ==
[~2024-01-09] MED LIST changes: -ROSU10TA6 PO; +ROSU10TA61 PO
[2024-01-09 18:32] LABS: HEMATOCRIT 40.9 % (36.0-47.0); HEMOGLOBIN 13.3 g/dl (12.0-15.5); MEAN CORPUSCULAR HGB CONC 32.5 g/dl (32.0-36.5); MEAN CORPUSCULAR VOLUME 92.1 fl (80.0-96.0); PLATELET COUNT, AUTOMATED 168 10^3/uL (150-450); RED BLOOD COUNT 4.44 10^6/uL (4.00-5.40); WHITE BLOOD COUNT 18.6 10^3/uL (4.0-10.0)
[2024-01-09 18:34] LABS: ALBUMIN 4.1 G/DL (3.2-5.2); ALKALINE PHOSPHATASE 63 U/L (46-116); ALT/SGPT < 9 U/L (7.0-40); AST/SGOT 14 U/L (<34); BILIRUBIN,TOTAL 0.5 MG/DL (0.3-1.2); BLOOD UREA NITROGEN 31 MG/DL (9-23); CALCIUM LEVEL 9.2 MG/DL (8.3-10.6); CARBON DIOXIDE LEVEL 28 MMOL/L (20-31); CHLORIDE LEVEL 108 MMOL/L (98-107); CHOLESTEROL LEVEL 209 MG/DL (<200); CREATININE FOR GFR 1.04 MG/DL (0.55-1.30); GLOMERULAR FILTRATION RATE 54.3 (>32); GLUCOSE, FASTING 107 MG/DL (74-106); MAGNESIUM LEVEL 1.9 MG/DL (1.8-2.4); POTASSIUM SERUM 4.8 MMOL/L (3.5-5.1); SODIUM LEVEL 141 MMOL/L (136-145); THYROID STIMULATING HORMONE 1.519 uIU/ML (0.55-4.78); TOTAL 25(OH) VITAMIN D 26.2 NG/ML (20.0-100.0); TOTAL PROTEIN 6.5 G/DL (5.7-8.2); TRIGLYCERIDES LEVEL 170 MG/DL (<150)
[2024-01-09 18:35] LABS: FREE T4 1.08 NG/DL (0.89-1.76)
[2024-01-09 18:46] LABS: HEMOGLOBIN A1c 5.7 % (4.0-6.0)
[2024-01-09 19:31] LABS: ATYPICAL LYMPH 8 % (0-5); BASOPHILS 1 % (0-1); EOSINOPHILS 1 % (0-3); LYMPHOCYTES 48 % (16-44); MONOCYTES 4 % (0-5); NEUTROPHILS 38 % (28-66)
[2024-01-09 19:32] LABS: PLATELET ESTIMATE NORMAL (NORMAL)
[2024-01-09 19:33] LABS: ANISOCYTOSIS 1+
== END ==
LOC: M SFHCCLAY 09:32
PROVIDERS: ATTEND Nurse Practitioner Family
DX: I10 Essential (primary) hypertension (principal); I25.10 Atherosclerotic heart disease of native coronary artery without angina pectoris; R73.03 Prediabetes; E78.49 Other hyperlipidemia; E55.9 Vitamin D deficiency, unspecified

== ENCOUNTER → 2024-02-06 | Outpatient (CLI) | payer MEDICARE | LOC: M WHC 09:14 | PROVIDERS: ATTEND Nurse Practitioner Family | DX: Z78.0 Asymptomatic menopausal state (principal) ==

== ENCOUNTER → 2024-04-30 | Outpatient (CLI) | payer MEDICARE | LOC: M WHC 13:04 | PROVIDERS: ATTEND Nurse Practitioner Family | DX: I65.23 Occlusion and stenosis of bilateral carotid arteries (principal) ==

== ENCOUNTER → 2024-05-03 | Outpatient (REF) | payer MEDICARE | LOC: M SFHCDERM 17:25 | PROVIDERS: ATTEND Physician Assistant | DX: C44.519 Basal cell carcinoma of skin of other part of trunk (principal) ==

== ENCOUNTER → 2024-07-09 | Outpatient (REF) | payer MEDICARE ==
[2024-07-09 18:35] LABS: ALBUMIN 3.9 G/DL (3.2-5.2); BILIRUBIN,TOTAL 0.4 MG/DL (0.3-1.2); CALCIUM LEVEL 9.6 MG/DL (8.3-10.6); CHOLESTEROL RISK RATIO 3.44 (<5); CREATININE FOR GFR 1.04 MG/DL (0.55-1.30); GLOMERULAR FILTRATION RATE 54.1 (>32); HDL CHOLESTEROL 65.3 MG/DL (>40); LDL CHOLESTEROL 125.7 MG/DL (<100); NON-HDL-C 159.7 MG/DL; POTASSIUM SERUM 4.2 MMOL/L (3.5-5.1); TOTAL PROTEIN 6.9 G/DL (5.7-8.2)
[2024-07-09 18:39] LABS: FREE T4 1.08 NG/DL (0.89-1.76); THYROID STIMULATING HORMONE 1.305 uIU/ML (0.55-4.78)
[2024-07-09 20:02] LABS: HEMOGLOBIN A1c 5.8 % (4.0-6.0)
== END ==
LOC: M SFHCCLAY 10:09
PROVIDERS: ATTEND Nurse Practitioner Family
DX: I10 Essential (primary) hypertension (principal); I25.10 Atherosclerotic heart disease of native coronary artery without angina pectoris; R73.03 Prediabetes; E78.49 Other hyperlipidemia

== ENCOUNTER → 2024-07-10 | Outpatient (REF) | payer MEDICARE | LOC: M SFHCCLAY 13:03 | PROVIDERS: ATTEND Nurse Practitioner Family | DX: N89.8 Other specified noninflammatory disorders of vagina (principal) ==

== ENCOUNTER → 2024-11-01 | Outpatient (REF) | payer MEDICARE ==
[~2024-11-01] MED LIST changes: +ROPI5TAB19
== END ==
LOC: M SFHCDERM 17:37
PROVIDERS: ATTEND Dermatology
DX: D48.9 Neoplasm of uncertain behavior, unspecified (principal); C44.42 Squamous cell carcinoma of skin of scalp and neck

== ENCOUNTER → 2024-11-12 | Outpatient (CLI) | payer MEDICARE ==
[~2024-11-12] MED LIST changes: +ISOVUE-370 76% 100ML VIAL As Ordered ONE
== END ==
LOC: M RAD 11:41
DX: C91.10 Chronic lymphocytic leukemia of B-cell type not having achieved remission (principal)
CPT/HCPCS: 70491; 71260; 74177; Q9967

== ENCOUNTER → 2025-04-30 | Outpatient (REF) | payer MEDICARE ==
[~2025-04-30] MED LIST changes: -EZET10TA21; +EZET10TA57; -ISOVUE-370 76% 100ML VIAL As Ordered ONE
[2025-04-30 12:22] LABS: BASO # 0.1 10^3/uL (0.0-0.2); BASO % 0.5 % (0.0-1.0); EOS # 0.2 10^3/uL (0.0-0.5); EOS % 0.8 % (0.0-3.0); LYMPH # 14.0 10^3/uL (1.5-5.0); LYMPH % 71.1 % (24.0-44.0); MONO # 0.7 10^3/uL (0.0-0.8); MONO % 3.3 % (2.0-8.0); NEUTROPHILS # 4.8 10^3/uL (1.5-8.5); NEUTROPHILS % 24.0 % (36.0-66.0); PLATELET COUNT, AUTOMATED 158 10^3/uL (150-450)
[2025-04-30 14:29] LABS: ALT/SGPT < 9 U/L (7.0-40); AST/SGOT 20 U/L (<34); CALCIUM LEVEL 9.2 MG/DL (8.3-10.6); CARBON DIOXIDE LEVEL 24 MMOL/L (20-31); CHLORIDE LEVEL 108 MMOL/L (98-107); CHOLESTEROL LEVEL 262 MG/DL (<200); CHOLESTEROL RISK RATIO 4.75 (<5); CREATININE FOR GFR 1.05 MG/DL (0.55-1.30); FREE T4 0.92 NG/DL (0.89-1.76); GLOMERULAR FILTRATION RATE 53.1 (>32); LDL CHOLESTEROL 160.9 MG/DL (<100); MAGNESIUM LEVEL 2.0 MG/DL (1.8-2.4); NON-HDL-C 206.9 MG/DL; POTASSIUM SERUM 4.6 MMOL/L (3.5-5.1); SODIUM LEVEL 141 MMOL/L (136-145); TRIGLYCERIDES LEVEL 230 MG/DL (<150)
[2025-04-30 16:16] LABS: ESTIMATED AVERAGE GLUCOSE 120.0 MG/DL (60-110)
== END ==
LOC: M SFHCCLAY 08:22
PROVIDERS: ATTEND Nurse Practitioner Family
DX: I25.10 Atherosclerotic heart disease of native coronary artery without angina pectoris (principal); I10 Essential (primary) hypertension; R73.03 Prediabetes; E78.49 Other hyperlipidemia

== ENCOUNTER → 2025-05-20 | Outpatient (CLI) | payer MEDICARE ==
[~2025-05-20] MED LIST changes: -ROSU10TA61 PO; +ROSU10TA90 PO
== END ==
LOC: M PLARAD 12:18
PROVIDERS: ATTEND Internal Medicine Medical Oncology
DX: C91.10 Chronic lymphocytic leukemia of B-cell type not having achieved remission (principal)
CPT/HCPCS: 78815; A9552

== ENCOUNTER → 2025-06-13 | Outpatient (CLI) | payer MEDICARE ==
[~2025-06-13] MED LIST changes: +PROHANCE 279.3MG/ML 15ML VIAL ONE; +PROHANCE 279.3MG/ML 5ML VIAL ONE
== END ==
LOC: M PLAIMG 10:17
PROVIDERS: ATTEND Internal Medicine Medical Oncology
DX: C91.10 Chronic lymphocytic leukemia of B-cell type not having achieved remission (principal); K86.2 Cyst of pancreas; K86.89 Other specified diseases of pancreas; R59.0 Localized enlarged lymph nodes; K80.20 Calculus of gallbladder without cholecystitis without obstruction
CPT/HCPCS: 74183; A9579

== ENCOUNTER → 2025-06-27 | Outpatient (REF) | payer MEDICARE ==
[~2025-06-27] MED LIST changes: -PROHANCE 279.3MG/ML 15ML VIAL ONE; -PROHANCE 279.3MG/ML 5ML VIAL ONE
== END ==
LOC: M SFHCDERM 15:46
PROVIDERS: ATTEND Physician Assistant
DX: Z53.9 Procedure and treatment not carried out, unspecified reason (principal)

== ENCOUNTER → 2025-07-12 | Outpatient (REF) | payer MEDICARE | LOC: M LAB REF 13:01 | PROVIDERS: ATTEND Surgery | DX: R19.7 Diarrhea, unspecified (principal); Z53.9 Procedure and treatment not carried out, unspecified reason ==